=== PATIENT | female | born 1940 | race Caucasian/White ===

== ENCOUNTER 2017-11-30 10:31 | Day surgery (SDC) | payer MEDICARE ==
[2017-11-27 16:06] VITALS: BMI 26.5
[~2017-11-30 10:31] MED LIST: DEXAMETHASONE SOD PHOSPHATE 10 MG/ML 1 ML VIAL IV ONE; HEPARIN SODIUM,PORCINE 5,000 UNIT/ML 1 ML VIAL SQ ONE; LACTATED RINGERS 1,000 ML IV SCH; LIDOCAINE 1% 20 ML VIAL (10MG/ML) FOR IV START INTRADERMA PRN; MIDAZOLAM 2 MG/2 ML VIAL IV PRN; MORPHINE SULFATE 4 MG/0.8 ML SYRINGE (INJ) IV PRN; ONDANSETRON ODT 4 MG TAB PO ONE; Pre Op ABX Message 1 EACH MISC MISCELLANE ONE; SCOPOLAMINE 1.5MG/72HR PATCH TRANSDERM ONE
[2017-11-30 11:26] VITALS: RESP 16
[2017-11-30] MEDS ORDERED: ALPRAZolam 0.25 MG TAB PO ONE (11:26)
[2017-11-30] MEDS ORDERED: LIDOCAINE 1% INJ 10MG/ML (20 ML MDV) SQ ONE (12:11)
[2017-11-30] MEDS ORDERED: SODIUM BICARB 4% 5 ML VIAL (0.48 MEQ/ML) MISCELLANE ONE (12:11)
[2017-11-30] MEDS ORDERED: ONDANSETRON 4 MG/2 ML VIAL IVP ONE (12:42)
[2017-11-30] MEDS ORDERED: ePHEDrine SULFATE/0.9% NACL/PF 50 MG/5 ML SYRINGE IV ONE (12:53)
[2017-11-30] MEDS ORDERED: LIDOCAINE 1% INJ 10MG/ML (20 ML MDV) ONE (12:53)
[2017-11-30] MEDS ORDERED: PROPOFOL 10 MG/ML 20 ML VIAL IV ONE (12:53)
[2017-11-30] MEDS ORDERED: fentaNYL (PF) 50 MCG/ML 2 ML AMP ONE (12:53)
[2017-11-30] MEDS ORDERED: MIDAZOLAM 2 MG/2 ML VIAL ONE (12:53)
[2017-11-30 13:03] VITALS: TEMP 98.7
[2017-11-30] MEDS ORDERED: ceFAZolin 1,000 MG VIAL IVPB ONE ×2 (13:05→13:17)
[2017-11-30] MEDS ORDERED: BUPIVACAINE (PF) 0.25% 30 ML VIAL SQ ONE ×2 (13:16→13:31)
[2017-11-30] MEDS ORDERED: NALOXONE 0.4 MG/ML 1 ML VIAL IV PRN (14:31)
--- NOTE | 2017-11-30 14:35 | P.OP ---
Date of Procedure: 11/30/17 Procedure(s) Performed: PREOPERATIVE DIAGNOSIS: Abnormal left mammogram POSTOPERATIVE DIAGNOSIS: Same PROCEDURE: [] Breast wire localization biopsy SURGEON: Naseem EBL: Minimal ANESTHESIA: Sedation plus local COMPLICATIONS: None OPERATIVE PROCEDURE: Patient was placed on the operating room table in the supine position. The patient's breast was prepped and draped in usual sterile fashion. A curvilinear incision was made superior and slightly medial to the wire entrance site at the site of previous lumpectomy. The subcutaneous tissues were divided until the wire was identified laterally in the breast. I then followed the wire medially and removed the breast tissue around the tip of the wire extending posteriorly to the chest wall. I removed an adjacent portion of firm breast tissue that was present slightly superior to the track of the wire. This was all sent for radiography. We were then notified that the clips were present but the calcifications were not seen. I had already closed the surgical site but reopened the surgical site at that time and removed additional tissue. 2 additional ports in the breast tissue were sent at that time for radiograph. It should be noted that at this time we had the pectoralis musculature identified posteriorly for a distance of approximately 6 x 5 cm. No additional indurated tissue was seen. I spoke with radiology at that point. Again no significant calcifications were identified despite the previous surgically placed clips being present and the fact that the calcification seen to be within that area. No further excision took place at this time. I did place circumferential clips for future reference. No bleeding was seen. The subcutaneous tissues were closed using 3-0 Vicryl sutures. The skin was closed using a running 4-0 Monocryl stitch. Steri- Strips and sterile dressings were applied. DISPOSITION: Stable to recovery room
--- NOTE | 2017-11-30 15:00 | MM ---
EXAMINATION TYPE: MG surgical specimen LT, MG pre op needle loc LT DATE OF EXAM: 11/30/2017 COMPARISON: Outside radiographs from the diagnostic exam of 2018. CLINICAL HISTORY: History of left-sided breast cancer with lumpectomy. Increasing calcifications within the lumpectomy bed that were unable to be sampled by stereotactic guided biopsy due to posterior depth and for which needle localization was recommended. TECHNIQUE: Needle localization with wire placement and surgical excision of area of concern in the left breast. FINDINGS: The procedure of needle localization with wire placement and than surgical excision was explained to the patient. Benefits, alternatives, and risks were discussed. An informed consent was then obtained. Preprocedural timeout was performed. The shortest pathway for procedure was chosen. Most accessible pathway was lateral medial approach. The overlying skin was prepped and draped in usual sterile fashion. 10 cc of lidocaine was used as anesthetic into the skin and subcutaneous tissue up to the level of area of concern. A 7 cm needle was used. It was placed via a lateral to medial approach under mammographic guidance. Subsequent 90 degrees mammogram show the needle to be in satisfactory position relative to the targeted area. At this point, wire was placed and the needle was withdrawn. The wire was fixed to patient's skin. Images were marked for surgeon. The patient tolerated the procedure well without any immediate complication. The patient was kept in the radiology department for short stay after the procedure and then taken to surgery for surgical excision. Few faint punctate calcifications, surgical clips and wire are identified in specimen mammogram. Discussion was had with the ordering surgeon after the concern of only few faint punctate calcifications, however the surrounding surgical clips and wire were included in the specimen radiograph as well as a palpable scar per the surgeon. Sampling was obtained to the chest wall. The patient was kept in hospital for short stay after the procedure and then discharged home in stable condition. IMPRESSION: Successful, uncomplicated needle localization with wire placement and surgical excision in the left breast, full pathology results to follow. Pathology Results: Benign A. BREAST, LEFT, NEEDLE LOCALIZATION EXCISION: BENIGN BREAST WITH FIBROCYSTIC CHANGES INCLUDING STROMAL FIBROSIS, SMALL CYSTS, SCLEROSING ADENOSIS AND APOCRINE METAPLASIA. FOCAL LOBULAR CYTOPATHIC CHANGES CONSISTENT WITH PREVIOUS RADIATION TREATMENT EFFECT. MEDIAL CALCIFIC SCLEROSIS OF BLOOD VESSELS. B. BREAST, LEFT, NEEDLE LOCALIZATION EXCISION #2: BENIGN BREAST WITH PROMINENT ADIPOSE TISSUE AND FIBROCYSTIC CHANGES INCLUDING FIBROSIS, SMALL CYSTS, SCLEROSING ADENOSIS AND RARE MICROCALCIFICATIONS. FOCAL LOBULAR CYTOPATHIC CHANGES CONSISTENT WITH PREVIOUS RADIATION TREATMENT EFFECT AND FOCAL SCAR. Recommendation Follow up mammogram of the left breast in 6 months. MTDD
[2017-11-30 15:34] VITALS: BP 150/76; PULSE 84
== END 2017-11-30 15:54 | disposition home or self-care (01) ==
LOC: OR 10:31
PROVIDERS: ATTEND Surgery
DX: N60.32 Fibrosclerosis of left breast (principal); N60.22 Fibroadenosis of left breast; N60.82 Other benign mammary dysplasias of left breast; R92.0 Mammographic microcalcification found on diagnostic imaging of breast; Z85.3 Personal history of malignant neoplasm of breast; G89.29 Other chronic pain; I10 Essential (primary) hypertension; Z80.3 Family history of malignant neoplasm of breast; Z79.899 Other long term (current) drug therapy; Z91.09 Other allergy status, other than to drugs and biological substances
CPT/HCPCS: 84132; 88307; 76098; 19281; 19125; J2250; J1644; J1100; J2405; J0690; J2001; J3010; J2704

== ENCOUNTER → 2018-06-04 | Outpatient (CLI) | payer MEDICARE ==
--- NOTE | 2018-06-04 10:27 | MM ---
Reason for exam: follow-up at short interval from prior study. Last mammogram was performed 7 months ago. History: Patient is postmenopausal and has history of breast cancer at age 73. Family history of breast cancer in mother at age 72. Benign MG pre op needle loc LT of the left breast, November 30, 2017. Malignant lumpectomy of the left breast, 2013. Radiation therapy of the left breast, 2013. Took estrogen for 5 years beginning at age 53. Took antineoplastic for 1 year beginning at age 73. Physical Findings: Nurse Summary: 1cm nodule in the left breast at 2 o'clock (nurse mj). MG 3D Diag Mammo W/Cad LT CC, MLO, XCCL, and LM view(s) were taken of the left breast. Prior study comparison: October 31, 2017, mammogram. The breast tissue is heterogeneously dense. This may lower the sensitivity of mammography. Stable calcifications. Stable post operative distortion. No significant new findings when compared with previous films. These results were verbally communicated with the patient and result sheet given to the patient on 06/04/18. ASSESSMENT: Benign, BI-RAD 2 RECOMMENDATION: Routine screening mammogram of both breasts in 5 months. Back on schedule. Manage patient on a clinical basis.
== END | disposition home or self-care (01) ==
LOC: RADMAMWWP 08:54
PROVIDERS: ATTEND Surgery
DX: R92.8 Other abnormal and inconclusive findings on diagnostic imaging of breast (principal)
CPT/HCPCS: 77065; G0279; 77061

== ENCOUNTER → 2018-11-05 | Outpatient (CLI) | payer MEDICARE ==
--- NOTE | 2018-11-07 13:06 | MM ---
Reason for exam: screening (asymptomatic). Last mammogram was performed 5 months ago. History: Patient is postmenopausal and has history of breast cancer at age 73. Family history of breast cancer in mother at age 72. Benign MG pre op needle loc LT of the left breast, November 30, 2017. Malignant lumpectomy of the left breast, 2013. Radiation therapy of the left breast, 2013. Took estrogen for 5 years beginning at age 53. Took antineoplastic for 1 year beginning at age 73. Physical Findings: A clinical breast exam by your physician is recommended on an annual basis and results should be correlated with mammographic findings. MG 3D Screening Mammo W/Cad Bilateral CC and MLO view(s) were taken. XCCL view(s) were taken of the left breast. Prior study comparison: June 04, 2018, left breast MG 3d diag mammo w/cad LT. October 31, 2017, mammogram. The breast tissue is heterogeneously dense. This may lower the sensitivity of mammography. There is a stable complex density left posterior CC view with calcification. No significant changes when compared with prior studies. ASSESSMENT: Benign, BI-RAD 2 RECOMMENDATION: Routine screening mammogram of both breasts.
== END | disposition home or self-care (01) ==
LOC: RADMAMWWP 11:01
PROVIDERS: ATTEND Surgery
DX: Z12.31 Encounter for screening mammogram for malignant neoplasm of breast (principal); Z80.3 Family history of malignant neoplasm of breast
CPT/HCPCS: 77063; 77067

== ENCOUNTER → 2020-01-01 | Outpatient (CLI) | payer MEDICARE ==
--- NOTE | 2020-01-02 09:52 | MM ---
Reason for exam: screening (asymptomatic). Last mammogram was performed 1 year and 2 months ago. History: Patient is postmenopausal and has history of breast cancer at age 73. Family history of breast cancer in mother at age 72. Benign MG pre op needle loc LT of the left breast, November 30, 2017. Malignant lumpectomy of the left breast, 2013. Radiation therapy of the left breast, 2013. Took estrogen for 5 years beginning at age 53. Took antineoplastic for 1 year beginning at age 73. Physical Findings: A clinical breast exam by your physician is recommended on an annual basis and results should be correlated with mammographic findings. MG 3D Screening Mammo W/Cad Bilateral CC and MLO view(s) were taken. Prior study comparison: November 05, 2018, bilateral MG 3d screening mammo w/cad. June 04, 2018, left breast MG 3d diag mammo w/cad LT. The breast tissue is heterogeneously dense. This may lower the sensitivity of mammography. Post therapy changes on the left with multifocal fat necrosis. ASSESSMENT: Incomplete: need additional imaging evaluation, BI-RAD 0 RECOMMENDATION: Special view mammogram of the left breast. (palpable per patient) If lesion persists on supplemental views, image directed ultrasound is recommended. [facility] will attempt to contact patient to return for supplemental views and ultrasound if indicated.
== END | disposition home or self-care (01) ==
LOC: RADMAMWWP 15:34
PROVIDERS: ATTEND Surgery
DX: Z12.31 Encounter for screening mammogram for malignant neoplasm of breast (principal); Z80.3 Family history of malignant neoplasm of breast
CPT/HCPCS: 77063; 77067

== ENCOUNTER → 2020-01-06 | Outpatient (CLI) | payer MEDICARE ==
--- NOTE | 2020-01-07 11:38 | MM ---
Reason for exam: additional evaluation requested from abnormal screening. Last mammogram was performed less than 1 month ago. History: Patient is postmenopausal, has history of breast cancer at age 73, and history of other cancer. Family history of breast cancer in mother at age 72. Benign MG pre op needle loc LT of the left breast, November 30, 2017. Malignant lumpectomy of the left breast, 2013. Radiation therapy of the left breast, 2014. Took estrogen for 5 years beginning at age 53. Took antineoplastic for 6 months beginning at age 73. Physical Findings: Nurse Summary: 1cm nodule in the left breast at 1 o'clock (nurse dw). MG 3D Work Up W/Cad LT Spot compression CC, spot compression MLO, and ML view(s) were taken of the left breast. Prior study comparison: January 01, 2020, bilateral MG 3d screening mammo w/cad. November 05, 2018, bilateral MG 3d screening mammo w/cad. June 04, 2018, left breast MG 3d diag mammo w/cad LT. The breast tissue is heterogeneously dense. This may lower the sensitivity of mammography. Post surgical and post therapy changes. Fat necrosis calcifications upper outer quadrant periareolar region with overlying palpable marker. No significant new findings when compared with previous films. These results were verbally communicated with the patient and result sheet given to the patient on 01/06/20. ASSESSMENT: Incomplete: need additional imaging evaluation, BI-RAD 0 RECOMMENDATION: Ultrasound of the left breast. (palpable)
--- NOTE | 2020-01-07 11:41 | USB ---
Reason for exam: additional evaluation requested from abnormal screening. History: Patient is postmenopausal, has history of breast cancer at age 73, and history of other cancer. Family history of breast cancer in mother at age 72. Benign MG pre op needle loc LT of the left breast, November 30, 2017. Malignant lumpectomy of the left breast, 2013. Radiation therapy of the left breast, 2013. Took estrogen for 5 years beginning at age 53. Took antineoplastic for 6 months beginning at age 73. US Breast Workup Limited LT Left limited breast ultrasound including focal area of concern, retroareolar and axilla demonstrates a 1.1 x 0.9 x 1.2cm hypoechoic lesion at 1 o'clock and a 1.5 x 0.9 x 1.3cm hypoechoic lesion at 3 o'clock. Both with shadowing and peripheral calcifications correlating well with the fat necrosis seen on mammogram. 6 month follow up recommended. These results were verbally communicated with the patient and result sheet given to the patient on 01/06/20. ASSESSMENT: Probably benign, BI-RAD 3 RECOMMENDATION: Follow-up diagnostic mammogram of the left breast in 6 months.
== END | disposition home or self-care (01) ==
LOC: RADMAMWWP 07:08
PROVIDERS: ATTEND Surgery
DX: R92.8 Other abnormal and inconclusive findings on diagnostic imaging of breast (principal)
CPT/HCPCS: 77065; 76642; G0279; 77061

== ENCOUNTER → 2020-07-08 | Outpatient (CLI) | payer MEDICARE ==
--- NOTE | 2020-07-08 11:04 | MM ---
Reason for exam: follow-up at short interval from prior study. Last mammogram was performed 6 months ago. History: Patient is postmenopausal, has history of breast cancer at age 73, and history of other cancer. Family history of breast cancer in mother at age 72. Benign MG pre op needle loc LT of the left breast, November 30, 2017. Malignant lumpectomy of the left breast, 2013. Radiation therapy of the left breast, 2013. Took estrogen for 5 years beginning at age 53. Took antineoplastic for 6 months beginning at age 73. Physical Findings: Nurse Summary: 1cm nodule in the left breast at 1 o'clock (nurse mj). MG 3D Diag Mammo W/Cad LT CC, MLO, and XCCL view(s) were taken of the left breast. Prior study comparison: January 06, 2020, left breast MG 3d work up w/cad LT. January 01, 2020, bilateral MG 3d screening mammo w/cad. There are scattered fibroglandular densities. Finding: There are typically benign dystrophic calcifications in the left breast consistent with post treatment changes. No significant changes in finding since January 06, 2020 and January 01, 2020. These results were verbally communicated with the patient and result sheet given to the patient on 07/08/20. ASSESSMENT: Benign, BI-RAD 2 RECOMMENDATION: Return to routine screening mammogram schedule for both breasts.
== END | disposition home or self-care (01) ==
LOC: RADMAMWWP 09:42
PROVIDERS: ATTEND Surgery
DX: R92.8 Other abnormal and inconclusive findings on diagnostic imaging of breast (principal)
CPT/HCPCS: 77065; G0279; 77061

== ENCOUNTER → 2021-01-14 | Outpatient (CLI) | payer MEDICARE ==
--- NOTE | 2021-01-20 10:50 | MM ---
Reason for exam: screening (asymptomatic). Last mammogram was performed 6 months ago. History: Patient is postmenopausal, has history of breast cancer at age 73, and history of other cancer. Family history of breast cancer in mother at age 72. Benign MG pre op needle loc LT of the left breast, November 30, 2017. Malignant lumpectomy of the left breast, 2013. Radiation therapy of the left breast, 2013. Took estrogen for 5 years beginning at age 53. Took antineoplastic for 6 months beginning at age 73. Physical Findings: A clinical breast exam by your physician is recommended on an annual basis and results should be correlated with mammographic findings. MG 3D Screening Mammo W/Cad Bilateral CC and MLO view(s) were taken. Prior study comparison: July 08, 2020, left breast MG 3d diag mammo w/cad LT. January 06, 2020, left breast MG 3d work up w/cad LT. January 01, 2020, bilateral MG 3d screening mammo w/cad. Post surgical changes left breast. No significant changes when compared with prior studies. ASSESSMENT: Benign, BI-RAD 2 RECOMMENDATION: Routine screening mammogram of both breasts in 1 year.
== END | disposition home or self-care (01) ==
LOC: RADMAMWWP 11:42
PROVIDERS: ATTEND Surgery
DX: Z12.31 Encounter for screening mammogram for malignant neoplasm of breast (principal); Z78.0 Asymptomatic menopausal state; Z80.3 Family history of malignant neoplasm of breast; Z85.3 Personal history of malignant neoplasm of breast
CPT/HCPCS: 77063; 77067

== ENCOUNTER → 2022-01-18 | Outpatient (CLI) | payer MEDICARE ==
--- NOTE | 2022-01-19 11:37 | MM ---
Reason for Exam: Screening (asymptomatic). Last screening mammogram was performed 12 month(s) ago. Patient History: Menarche at age 13. First Full-Term at age 24. Left ovary removed at age 53. Right ovary removed at age 53. Hysterectomy at age 53. Postmenopausal. Patient has history of breast feeding. Breast cancer, left, age 73. Previous chest radiation therapy. Estrogen for 5 years from age 53 until age 58. 2013, Malignant Lumpectomy on the left side. 11/30/2017, Benign Core Biopsy on the left side. 2013, Radiation Therapy on the left side. Mother had breast cancer, age 72. Prior Study Comparison: 01/06/2020 Left Diagnostic Mammogram, [facility]. 07/08/2020 Left Diagnostic Mammogram, [facility]. 01/14/2021 Bilateral Screening Mammogram, [facility]. Tissue Density: The breast tissue is heterogeneously dense. This may lower the sensitivity of mammography. Findings: Analyzed By CAD. Persistent posttreatment change to the left breast with additional scattered dystrophic calcifications. No new mass or worrisome cluster of microcalcification in either breast. Overall Assessment: Benign, BI-RAD 2 Management: Screening Mammogram of both breasts in 1 year. A clinical breast exam by your physician is recommended on an annual basis and results should be correlated with mammographic findings. Electronically signed and approved by: Delio John M.D.
== END | disposition home or self-care (01) ==
LOC: RADMAMWWP 11:04
PROVIDERS: ATTEND Family Medicine
DX: Z12.31 Encounter for screening mammogram for malignant neoplasm of breast (principal); Z78.0 Asymptomatic menopausal state; Z80.3 Family history of malignant neoplasm of breast
CPT/HCPCS: 77063; 77067

== ENCOUNTER → 2023-01-31 | Outpatient (CLI) | payer MEDICARE ==
--- NOTE | 2023-02-01 08:22 | MM ---
Reason for Exam: Screening (asymptomatic). Last screening mammogram was performed 12 month(s) ago. Patient History: Menarche at age 13. First Full-Term at age 24. Left ovary removed at age 53. Right ovary removed at age 53. Hysterectomy at age 53. Postmenopausal. Patient has history of breast feeding. Breast cancer, left, age 73. Previous chest radiation therapy. Estrogen for 5 years from age 53 until age 58. 2013, Malignant Lumpectomy on the left side. 11/30/2017, Benign Core Biopsy on the left side. 2013, Radiation Therapy on the left side. Mother had breast cancer, age 72. Prior Study Comparison: 07/08/2020 Left Diagnostic Mammogram, [facility]. 01/14/2021 Bilateral Screening Mammogram, [facility]. 01/18/2022 Bilateral MG 3D screening mammo w/cad, [facility]. Tissue Density: The breast tissue is heterogeneously dense. This may lower the sensitivity of mammography. Findings: Analyzed By CAD. There is no suspicious group of microcalcifications or new suspicious mass in either breast. Persistent posttreatment change in the left breast with additional scattered dystrophic calcifications. Benign-appearing calcifications within the right breast. Overall Assessment: Benign, BI-RAD 2 Management: Screening Mammogram of both breasts in 1 year. A clinical breast exam by your physician is recommended on an annual basis and results should be correlated with mammographic findings. Electronically signed and approved by: Costa Lloyd D.O.
== END | disposition home or self-care (01) ==
LOC: RADMAMWWP 11:06
PROVIDERS: ATTEND Internal Medicine
DX: Z12.31 Encounter for screening mammogram for malignant neoplasm of breast (principal); Z78.0 Asymptomatic menopausal state; Z80.3 Family history of malignant neoplasm of breast
CPT/HCPCS: 77063; 77067

== ENCOUNTER → 2024-02-20 | Outpatient (CLI) | payer MEDICARE ==
--- NOTE | 2024-02-25 12:43 | MM ---
Reason for Exam: Screening (asymptomatic). Last mammogram was performed 1 year(s) and 1 month(s) ago. Patient History: Menarche at age 13. First Full-Term at age 24. Left ovary removed at age 53. Right ovary removed at age 53. Hysterectomy at age 53. Postmenopausal. Patient has history of breast feeding. Breast cancer, left, age 73. Previous chest radiation therapy at age 73. Currently using Estrogen, starting at age 81. 2013, Malignant Lumpectomy on the left side. 11/30/2017, Benign Core Biopsy on the left side. 2013, Radiation Therapy on the left side. Mother had breast cancer, age 72. Prior Study Comparison: 10/31/2017 Screening Mammogram, Unknown. 06/04/2018 Left Diagnostic Mammogram, [facility]. 11/05/2018 Bilateral Screening Mammogram, [facility]. 01/01/2020 Bilateral Screening Mammogram, [facility]. 01/06/2020 Left Diagnostic Mammogram, [facility]. 01/14/2021 Bilateral Screening Mammogram, [facility]. 01/18/2022 Bilateral MG 3D screening mammo w/cad, [facility]. 01/31/2023 Bilateral MG 3D screening mammo w/cad, [facility]. Tissue Density: The breasts are heterogeneously dense, which may obscure small masses. Findings: Analyzed By CAD. The pattern is stable. Some postsurgical changes in the upper outer posterior left breast. Large coarse calcifications are within the left breast. Few scattered benign punctate calcifications are present. Vascular calcification is present. No suspicious groups of microcalcifications, spiculated or lobular masses, architectural distortion or other secondary signs of malignancy are mammographically apparent. Overall Assessment: Benign, BI-RAD 2 Management: Screening Mammogram of both breasts in 1 year. A negative mammogram report should not preclude additional follow up of suspicious palpable abnormalities. Patient should continue monthly self breast exam. A clinical breast exam by your physician is recommended on an annual basis and results should be correlated with mammographic findings. Note on Nikki scores and lifetime risk: 1. A Nikki score greater than 3% is considered moderate risk. If this is the case, consider specialist referral to assess eligibility for a risk reducing agent. 2. If overall lifetime risk for the development of breast cancer is 20% or higher, the patient may qualify for future screening with alternating mammogram and breast MRI. Electronically signed and approved by: Jonatan Prather D.O. Radiologis
== END | disposition home or self-care (01) ==
LOC: RADMAMWWP 10:57
PROVIDERS: ATTEND Family Medicine
DX: Z12.31 Encounter for screening mammogram for malignant neoplasm of breast (principal); R92.333 Mammographic heterogeneous density, bilateral breasts; Z78.0 Asymptomatic menopausal state; Z80.3 Family history of malignant neoplasm of breast
CPT/HCPCS: 77063; 77067

== ENCOUNTER → 2025-02-25 | Outpatient (CLI) | payer MEDICARE ==
--- NOTE | 2025-02-25 11:47 | MM ---
Reason for Exam: Screening (asymptomatic). Last screening mammogram was performed 12 month(s) ago. Patient History: Menarche at age 13. First Full-Term at age 24. Left ovary removed at age 53. Right ovary removed at age 53. Hysterectomy at age 53. Postmenopausal. Patient has history of breast feeding. Breast cancer, left, age 73. Previous chest radiation therapy at age 73. Currently using Estrogen, starting at age 81. 2013, Malignant Lumpectomy on the left side. 11/30/2017, Benign Core Biopsy on the left side. 2013, Radiation Therapy on the left side. Mother had breast cancer, age 72. Prior Study Comparison: 06/04/2018 Left Diagnostic Mammogram, [facility]. 11/05/2018 Bilateral Screening Mammogram, [facility]. 01/01/2020 Bilateral Screening Mammogram, [facility]. 01/06/2020 Left Diagnostic Mammogram, [facility]. 07/08/2020 Left Diagnostic Mammogram, [facility]. 01/14/2021 Bilateral Screening Mammogram, [facility]. 01/18/2022 Bilateral MG 3D screening mammo w/cad, [facility]. 01/31/2023 Bilateral MG 3D screening mammo w/cad, [facility]. 02/20/2024 Bilateral MG 3D screening mammo w/cad, [facility]. Tissue Density: There are scattered areas of fibroglandular density. Findings: Analyzed By CAD. Left breast surgical clips. Right breast: There is no suspicious group of microcalcifications or new suspicious mass. Left breast: There is no suspicious group of microcalcifications or new suspicious mass. Benign-appearing calcifications left breast. Overall Assessment: Benign, BI-RAD 2 Management: Screening Mammogram of both breasts in [address] [facility] will attempt to contact patient to return for supplemental views and ultrasound if indicated. Patient should continue monthly self-breast exams. A clinical breast exam by your physician is recommended on an annual basis. This exam should not preclude additional follow-up of suspicious palpable abnormalities. Note on Nikki scores and lifetime risk: 1. A Nikki score greater than 3% is considered moderate risk. If this is the case, consider specialist referral to assess eligibility for a risk reducing agent. 2. If overall lifetime risk for the development of breast cancer is 20% or higher, the patient may qualify for future screening with alternating mammogram and breast MRI. [facility], , 02/25/2025 11:44 AM. Electronically signed and approved by: Ho Crystal DO
== END | disposition home or self-care (01) ==
LOC: RADMAMWWP 10:07
PROVIDERS: ATTEND Nurse Practitioner Family
DX: Z12.31 Encounter for screening mammogram for malignant neoplasm of breast (principal); R92.323 Mammographic fibroglandular density, bilateral breasts; Z78.0 Asymptomatic menopausal state; Z80.3 Family history of malignant neoplasm of breast
CPT/HCPCS: 77063; 77067